=== PATIENT | female | born 1960 | race Caucasian/White ===

== ENCOUNTER 2024-05-28 10:32 | Emergency (ER) | payer OTHER, SELFPAY ==
[2024-05-28] VITALS (15 sets, daily range): BP systolic 135–146; BP diastolic 72–89; PULSE 70–91; RESP 16; TEMP 37.3; O2SAT 90–100; BMI 33.1
[2024-05-28] MEDS: EPINEPHrine 0.3 MG PEN IM (11:10)
[2024-05-28] MEDS: METHYLPREDNISOLONE SOD SUCC 62.5 MG/ML (125) 125 MG IVP (11:34)
[2024-05-28] MEDS: FAMOTIDINE 20 MG TABLET PO (11:34)
--- NOTE | 2024-05-28 11:36 | ED_ITS ---
HPI - General Adult General Chief complaint: Allergic Reaction Stated complaint: Allergic reaction - hives Time Seen by Provider: 05/28/24 10:45 Source: patient Mode of arrival: ambulatory Limitations: no limitations History of Present Illness HPI narrative: 64-year-old female presenting today with hives. Patient states that the hives started 2 days ago in the middle of the night. She woke up feeling very itchy in town hives all over her body. She went to the [facility] yesterday and was complaining of tongue swelling at that time as well. She received prednisone, famotidine in epi pen injection. She felt better by the time she got home her symptoms had returned. She states that she woke up this morning took 20 mg of prednisone 25 mg of Benadryl, and her hives have progressively gotten worse. She feels very itchy. She feels that her lips are mildly swollen, no tongue swelling, no difficulty breathing or swallowing. Patient takes lisinopril in about 1 month ago was started on lisinopril, hydrochlorothiazide combo. Has had no issues until 2 days ago. Denies any changes in lotions, detergents, soaps, shampoos etc.. Denies any new foods common to has not gone out to eat at any restaurants recently. Related Data Previous Rx's ?Medication ?Instructions ?Recorded prednisone 20 mg tablet 20 mg PO DIRECTED 9 days #18 05/28/24 tabs Allergies Allergy/AdvReac Type Severity Reaction Status Date / Time No Known Drug Allergies Allergy Verified 05/28/24 10:43 Review of Systems Status of ROS: Reports: 10 or more systems reviewed and unremarkable except as noted in History and below [facility] Social History Smoking Status: Never smoker How often do you have a drink containing alcohol: monthly or less AUDIT-C Alcohol total score: 1 Non-prescribed substance use: denies use Exam Narrative: Exam Narrative: Well-nourished well-developed patient in no acute distress. Alert and oriented. Answers questions appropriately. Mood and affect are appropriate. Thoughts are goal oriented and rational. No tangential or magical thinking noted. Patient speaks in full sentences without needing to catch her breath. HEENT: Normocephalic atraumatic. Pupils are equally round reactive to light. Extraocular muscles are intact. Conjunctivae are moist without any icterus noted. Moist mucous membranes. Posterior pharynx is normal. Neck is soft. No swelling of the soft palate, tongue or uvula. A lips appear mildly swollen. Cardiovascular: Heart is regular rate and rhythm S1 and S2 are present without any murmurs. Lungs: Clear to auscultation bilaterally no wheezes rhonchi or rales are appreciated. Patient takes deep breaths without any discomfort. Abdomen: Soft and nontender nondistended with normal bowel sounds. Extremities: Bilateral lower extremities are without edema. Skin: Well perfused . Patient has large confluent hives covering the trunk, face, scalp, neck, upper extremities, groin and axillary region. Const: Vital Signs, click to edit/add: Vital Signs - 24 hr 05/28/24 10:37 05/28/24 11:13 05/28/24 11:32 Temperature 99.2 F Pulse Rate 79 Pulse Rate [Left P ulse Oximeter] 78 Respiratory Rate 16 Blood Pressure 140/89 H Blood Pressure [Ri ght Upper Arm] 142/87 H Pulse Oximetry 97 95 91 Oxygen Delivery Me thod Room Air 05/28/24 11:33 05/28/24 11:45 05/28/24 12:00 Temperature Pulse Rate 78 80 72 Pulse Rate [Left P ulse Oximeter] Respiratory Rate Blood Pressure Blood Pressure [Ri ght Upper Arm] Pulse Oximetry 90 94 97 Oxygen Delivery Me thod 05/28/24 12:01 05/28/24 12:15 05/28/24 12:30 Temperature Pulse Rate 75 80 70 Pulse Rate [Left P ulse Oximeter] Respiratory Rate Blood Pressure 139/88 Blood Pressure [Ri ght Upper Arm] Pulse Oximetry 95 99 100 Oxygen Delivery Me thod 05/28/24 12:31 05/28/24 12:45 05/28/24 13:01 Temperature Pulse Rate 78 76 Pulse Rate [Left P ulse Oximeter] Respiratory Rate Blood Pressure 135/85 139/81 Blood Pressure [Ri ght Upper Arm] Pulse Oximetry 98 100 Oxygen Delivery Me thod 05/28/24 13:31 Temperature Pulse Rate Pulse Rate [Left P ulse Oximeter] Respiratory Rate Blood Pressure 146/76 H Blood Pressure [Ri ght Upper Arm] Pulse Oximetry Oxygen Delivery Me thod Course Course ED Course: IV established and patient is given Solu-Medrol, Benadryl, famotidine and epi injection. Patient felt better after treatment however, hives remained. Approximately 2-1/2 hours after treatment, hives completely resolved. Pruritus resolved also. Patient remained hemodynamically stable. Re-examination revealed that she had no the swelling of the posterior pharynx, lips or tongue. Vital Signs Vital signs: Initial Vital Signs Temperature 99.2 F 05/28/24 10:37 Temperature Source Temporal Artery Scan 05/28/24 10:37 Pulse Rate 78 05/28/24 10:37 Respiratory Rate 16 05/28/24 10:37 Blood Pressure 142/87 H 05/28/24 10:37 Blood Pressure Mean 105 05/28/24 10:37 Blood Pressure Position Sitting 05/28/24 10:37 Pulse Oximetry 97 05/28/24 10:37 Oxygen Delivery Method Room Air 05/28/24 10:37 Vital Signs Temperature 99.2 F 05/28/24 10:37 Pulse Rate 78 05/28/24 10:37 Respiratory Rate 16 05/28/24 10:37 Blood Pressure 142/87 H 05/28/24 10:37 Pulse Oximetry 97 05/28/24 10:37 Oxygen Delivery Method Room Air 05/28/24 10:37 Temperature 99.2 F 05/28/24 10:37 Pulse Rate 76 05/28/24 12:45 Respiratory Rate 16 05/28/24 10:37 Blood Pressure 146/76 H 05/28/24 13:31 Pulse Oximetry 100 05/28/24 12:45 Oxygen Delivery Method Room Air 05/28/24 10:37 Medications Administered Medications: Discontinued Medications Generic Name Dose Route Start Last Admin Trade Name Freq PRN Reason Stop Dose Admin Epinephrine HCl 0.3 mg 05/28/24 11:00 05/28/24 11:10 Epinephrine 0.3 Mg Pen IM 05/28/24 11:01 0.3 mg ONCE ONE Administration Famotidine 20 mg 05/28/24 11:00 05/28/24 11:34 Famotidine 20 Mg Tablet PO 05/28/24 11:01 20 mg ONCE ONE Administration Methylprednisolone Sodium Succinate 125 mg 05/28/24 11:00 05/28/24 11:34 Methylprednisolone Sod Succ 62.5 Mg/Ml (125) IVP 05/28/24 11:01 125 mg ONCE ONE Administration Medical Decision Making MDM Narrative Medical decision making narrative: 64-year-old female with hives, appears to be reaction to something. At this time patient will stop her lisinopril hydrochlorothiazide combo and she will follow up with her primary care provider this coming Saturday. At that time she revisit restarting her medications. We will also put her on a high dose brenda roid, Benadryl, Zyrtec regimen over the weekend. Lab Data Lab results reviewed: Yes I reviewed the patient's lab results Labs: Lab Results 05/28/24 Range/Units 11:20 WBC 10.16 (4.50-11.00) K/uL RBC 4.47 (4.00-5.20) m/uL Hgb 12.7 (12.0-16.0) gm/dL Hct 38.5 (33.0-51.0) % MCV 86 (80-100) fL MCH 28 (26-34) pg MCHC 33 (32-36) gm/dL RDW Coeff of Terrell 13.4 (11.5-15.5) % Plt Count 218 (140-440) K/uL Neut % (Auto) 86.2 H (42.0-72.0) % Lymph % (Auto) 7.2 L (20-44) % Aiken % (Auto) 5.4 (0.0-11.0) % Eos % (Auto) 0.0 (0.0-7.0) % Baso % (Auto) 0.1 (0.0-3.0) % Neut # (Auto) 8.80 H (1.7-7.0) K/uL Lymph # (Auto) 0.70 L (0.90-2.90) K/uL Aiken # (Auto) 0.50 (0.00-0.90) K/UL Eos # (Auto) 0.00 (0.00-0.50) K/uL Baso # (Auto) 0.01 (0.00-0.30) K/uL Abs Immat Gran (auto) 0.11 (0.00-0.30) K/uL Imm/Tot Granulo (auto) 1.1 % Sodium 133 L (135-149) mmol/L Potassium 3.4 L (3.6-5.1) mmol/L Chloride 101 (96-114) mmol/L Carbon Dioxide 24 (20-32) mmol/L Anion Gap 8 (7-15) mEq/L BUN 29 (7-30) mg/dL Creatinine 0.6 (0.5-1.5) mg/dL Estimated Creat Clear 49.72 Estimated GFR 101 ml/min Glucose 130 H (60-115) mg/dL Lactate 1.1 (0.5-1.9) mmol/L Calcium 8.9 (8.4-10.6) mg/dL Total Bilirubin 0.4 (0.1-1.5) mg/dL Direct Bilirubin 0.2 (0.0-0.5) mg/dL AST 24 (12-35) U/L ALT 24 (4-35) U/L Alkaline Phosphatase 58 (40-150) U/L C-Reactive Protein < 0.5 L (0.5-1.0) mg/dL Total Protein 6.6 (6.0-8.3) g/dL Albumin 4.4 (3.3-5.0) g/dL TSH 0.533 (0.270-4.20) uIU/mL Discharge Plan Discharge Clinical Impression: Allergic reaction, Urticaria Patient Disposition: Home, Self-Care Condition: Improved Additional Instructions: Start taking Zyrtec every morning, Benadryl 25 mg every night. Start 9 day course of prednisone as prescribed. Stop taking your blood pressure medication at this time. Follow-up with your primary care provider on Saturday. Discussed restarting your medication at that time. Prescriptions: New prednisone 20 mg tablet 20 mg PO DIRECTED 9 Days Qty: 18 0RF Rx Instructions: 60 mg p.o. daily for 3 days (3 tablets daily on day 1-3), 40 mg daily for 3 days (2 tablets daily on days 4-6), 20 mg daily for 3 days (1 tablet daily on days 7-9). Follow Up/Referrals: Provider,Not a Local [Primary Care Provider] - Stand Alone Forms: Patient Conversation Mediath Info Instructions
[2024-05-28 11:37] LABS: Lactate* 1.1 mmol/L (0.5-1.9)
[2024-05-28 11:40] LABS: Basophils Absolute Auto 0.01 K/uL (0.00-0.30); Basophils Percent Auto 0.1 % (0.0-3.0); Hematocrit 38.5 % (33.0-51.0); Hemoglobin* 12.7 gm/dL (12.0-16.0); Immature Granulocytes Abs Auto 0.11 K/uL (0.00-0.30); Immature Granulocytes Pct Auto 1.1 %; Lymphocytes Percent Auto 7.2 % (20-44); Mean Corpuscular HGB Conc 33 gm/dL (32-36); Mean Corpuscular Hemoglobin 28 pg (26-34); Mean Corpuscular Volume 86 fL (80-100); Monocytes Percent Auto 5.4 % (0.0-11.0); Neutrophils Percent Auto 86.2 % (42.0-72.0); Platelet Count* 218 K/uL (140-440); RDW Coefficient of Variation % 13.4 % (11.5-15.5); Red Blood Count 4.47 m/uL (4.00-5.20); Slide Review Reflex No; White Blood Count* 10.16 K/uL (4.50-11.00)
[2024-05-28 11:53] LABS: Albumin* 4.4 g/dL (3.3-5.0); Chloride* 101 mmol/L (96-114)
[2024-05-28 11:54] LABS: Potassium* 3.4 mmol/L (3.6-5.1); Sodium* 133 mmol/L (135-149)
[2024-05-28 11:56] LABS: Alkaline Phosphatase* 58 U/L (40-150); Anion Gap 8 mEq/L (7-15); Aspartate Amino Transferase* 24 U/L (12-35); Bilirubin Direct* 0.2 mg/dL (0.0-0.5); Bilirubin Total* 0.4 mg/dL (0.1-1.5); Carbon Dioxide* 24 mmol/L (20-32); Creatinine* 0.6 mg/dL (0.5-1.5); Est. Creatinine Clearance* 49.72; Estimated Glomerular Filt Rate 101 ml/min; Total Protein* 6.6 g/dL (6.0-8.3)
[2024-05-28 11:57] LABS: Alanine Aminotransferase* 24 U/L (4-35); Blood Urea Nitrogen* 29 mg/dL (7-30); Calcium* 8.9 mg/dL (8.4-10.6); Glucose* 130 mg/dL (60-115)
[2024-05-28 12:00] LABS: C Reactive Protein* < 0.5 mg/dL (0.5-1.0)
[2024-05-28 12:27] LABS: Thyroid Stimulating Hormone* 0.533 uIU/mL (0.270-4.20)
== END 2024-05-28 14:13 | disposition home or self-care (01) ==
PROVIDERS: Emergency Provider Family Medicine
DX: L50.9 Urticaria, unspecified (principal); T78.40XA Allergy, unspecified, initial encounter
CPT/HCPCS: 36415; 80048; 80076; 83605; 84443; 85025; 86140; 94761; 96372; 96374; 99283; 99284; A9270; J0171; J2919